=== PATIENT | male | born 1950 | race Caucasian/White ===

== ENCOUNTER → 2016-11-07 | Outpatient (CLI) | payer OTHER ==
--- NOTE | 2016-11-07 15:26 | XR ---
EXAMINATION TYPE: XR chest 2V DATE OF EXAM: 11/07/2016 3:09 PM COMPARISON: NONE HISTORY: Shortness of breath and cough TECHNIQUE: Frontal and lateral views of the chest are obtained. FINDINGS: There is no focal air space opacity, pleural effusion, or pneumothorax seen. The cardiac silhouette size is within normal limits. The osseous structures are intact. IMPRESSION: No acute cardiopulmonary process.
== END | disposition home or self-care (01) ==
LOC: RADXRMAIN 14:58
PROVIDERS: ATTEND Internal Medicine
DX: R06.02 Shortness of breath (principal)
CPT/HCPCS: 71020

== ENCOUNTER 2016-12-10 18:24 | Emergency (ER) | payer BC, OTHER ==
[2016-12-10 19:29] VITALS: BP 148/68; PULSE 67; RESP 18; TEMP 98.2
--- NOTE | 2016-12-10 19:48 | ED ---
Lower Extremity Injury HPI - General Chief Complaint: Extremity Injury, Lower Stated Complaint: left knee pain, injury from september Time Seen by Provider: 12/10/16 19:40 Source: patient, RN notes reviewed Mode of arrival: ambulatory Limitations: no limitations - History of Present Illness Initial Comments: 66-year-old male presents to the emergency Department chief complaint of left knee pain. Patient states that about 3 months ago he slipped and fell. Patient states every once in a while his left knee will bother him. Patient states today the pain seemed to flareup and he felt some tightening up of the knee and turning like pain when he walks. Patient states when he did fall he did Kevin. Patient states that he has not had an x-ray or any imaging since his fall. Patient denies any history of problems with the knee in the past. Patient states it is mild worse to walking or certain movement.Patient denies any recent fever, chills, shortness of breath, chest pain, back pain, abdominal pain, nausea vomiting, numbness or tingling, dysuria or hematuria, constipation or diarrhea, headaches or visual changes, or any other current symptoms. - Related Data Home Medications Medication Instructions Recorded Confirmed Ibuprofen [Motrin] 800 mg PO 12/10/16 Allergies Allergy/AdvReac Type Severity Reaction Status Date / Time No Known Allergies Allergy Verified 07/14/14 18:01 Review of Systems ROS Statement: Those systems with pertinent positive or pertinent negative responses have been documented in the HPI. ROS Other: All systems not noted in ROS Statement are negative. Past Medical History Past Medical History: No Reported History History of Any Multi-Drug Resistant Organisms: None Reported Past Surgical History: Orthopedic Surgery Additional Past Surgical History / Comment(s): traumatic arm surg with amputation Past Psychological History: No Psychological Hx Reported Smoking Status: Former smoker Past Alcohol Use History: None Reported Past Drug Use History: None Reported General Exam Limitations: no limitations General appearance: alert, in no apparent distress Head exam: Present: atraumatic, normocephalic, normal inspection Neck exam: Present: normal inspection. Absent: tenderness, meningismus, lymphadenopathy Respiratory exam: Present: normal lung sounds bilaterally. Absent: respiratory distress, wheezes, rales, rhonchi, stridor Cardiovascular Exam: Present: regular rate, normal rhythm, normal heart sounds. Absent: systolic murmur, diastolic murmur, rubs, gallop, clicks Left Hip exam: Present: normal inspection, full ROM. Absent: tenderness, swelling Upper Leg exam: Present: normal inspection, full ROM. Absent: tenderness, swelling Knee exam: Present: normal inspection, full ROM. Absent: tenderness, swelling, pain w/ pronation/supination, posterior draw sign, pain/laxity with valgus, pain /laxity with varus Lower Leg exam: Present: normal inspection, full ROM. Absent: tenderness, swelling Ankle exam: Present: normal inspection, full ROM. Absent: tenderness, swelling Gait: observed and limited by pain Neurological exam: Present: alert, oriented X3, CN II-XII intact Psychiatric exam: Present: normal affect, normal mood Skin exam: Present: warm, dry, intact, normal color. Absent: rash Course Vital Signs 12/10/16 19:25 Temperature 98.2 F Pulse Rate 67 Respiratory 18 Rate Blood Pressure 148/68 O2 Sat by Pulse 98 Oximetry Medical Decision Making - Medical Decision Making 60 history male presents with left knee pain. This time patient underwent an x- ray that a pressure acute processes. This time we discussed patient is most likely suffering from a left knee sprain. We discussed continuing to use the supportive wrap that he has at home. We discussed follow-up with orthopedic return parameters. Patient stated that he understood and all questions have been answered. He will be discharged. Disposition Clinical Impression: Left knee sprain Disposition: HOME SELF-CARE Condition: Stable Instructions: Knee Sprain (ED) Additional Instructions: Please use medication as discussed. Please follow up with family doctor if symptoms have not improved over the next two days. Please return to the emergency room if your symptoms increase or worsen or for any other concerns. Referrals: Karl Maria MD [Primary Care Provider] - 1-2 days Reyes Ortega MD [STAFF PHYSICIAN] - 1-2 days Time of Disposition: 20:01
--- NOTE | 2016-12-10 20:00 | XR ---
EXAMINATION TYPE: XR knee complete LT DATE OF EXAM: 12/10/2016 7:52 PM COMPARISON: NONE HISTORY: Knee pain TECHNIQUE: 3 views FINDINGS: I see no fracture nor dislocation. Joint spaces are normal. There are no pathologic calcifi cations. There is no sign of joint effusion. IMPRESSION: Negative left knee.
== END 2016-12-10 20:35 | disposition home or self-care (01) ==
LOC: EC 18:24
DX: S83.92XA Sprain of unspecified site of left knee, initial encounter (principal); Z87.891 Personal history of nicotine dependence; Z79.1 Long term (current) use of non-steroidal anti-inflammatories (NSAID); W01.0XXA Fall on same level from slipping, tripping and stumbling without subsequent striking against object, initial encounter; Y92.009 Unspecified place in unspecified non-institutional (private) residence as the place of occurrence of the external cause
CPT/HCPCS: 99283

== ENCOUNTER → 2017-03-07 | Outpatient (CLI) | payer BC | END | disposition home or self-care (01) | LOC: LABWHC1 16:17 | PROVIDERS: ATTEND Orthopaedic Surgery | DX: Z01.810 Encounter for preprocedural cardiovascular examination (principal); S83.242A Other tear of medial meniscus, current injury, left knee, initial encounter; Z01.812 Encounter for preprocedural laboratory examination | CPT/HCPCS: 36415; 93005 ==

== ENCOUNTER 2019-04-24 08:48 | Day surgery (SDC) | payer BC, OTHER ==
[2019-04-20 15:14] VITALS: BMI 34.4
[~2019-04-24 08:48] MED LIST: LACTATED RINGERS 1,000 ML IV SCH
[2019-04-24] MEDS ORDERED: MIDAZOLAM 2 MG/2 ML VIAL ONE (08:51)
[2019-04-24] MEDS ORDERED: PROPOFOL 10 MG/ML 20 ML VIAL IV ONE (08:51)
[2019-04-24] MEDS ORDERED: fentaNYL (PF) 50 MCG/ML 2 ML AMP ONE (08:51)
[2019-04-24 09:12] VITALS: TEMP 97.2
[2019-04-24] MEDS ORDERED: LIDOCAINE 1% 20 ML VIAL (10MG/ML) FOR IV START INTRADERMA ONE (09:16)
--- NOTE | 2019-04-24 10:18 | P.PCN ---
Date of Procedure: 04/24/19 Procedure(s) Performed: Brief history: Patient is a pleasant 68-year-old white male, scheduled for an elective upper endoscopy as well as colonoscopy as a part of evaluation of GERD/chronic hoarseness and prior history of colon polyps. Last colonoscopy was 8 years ago. Procedure performed: Esophagogastroduodenoscopy with biopsy Colonoscopy with snare polypectomy Preoperative diagnosis: GERD History of colon polyps Anesthesia: MAC Procedure: After informed consent was obtained from the patient was brought into the endoscopy unit and IV sedation was administered by anesthesia under continuous monitoring. Initially upper endoscopy was done. The Olympus GF 160 video endoscope was inserted inserted into the mouth and esophagus intubated without any difficulty and was gradually advanced into the stomach and duodenum and carefully examined. The bulb and second part of the duodenum appeared normal. The scope was then withdrawn into the stomach adequately insufflated with air and upon careful examination the antrum had mild gastritis and biopsies were done from this area. The body, cardia and fundus appeared normal. The scope was then withdrawn into the esophagus. The GE junction was located at 40 cm to the incisors. It appeared regular with no erwere 2 small superficial erosions consistent with LA grade a reflux esophagitis. Rest of the esophagus appeared normal. Patient tolerated the procedure well. At this time the patient continued to remain sedation. Initial digital rectal examination was normal. Olympus CF 160 video colonoscope was then inserted into the rectum and gradually advanced to the cecum without any difficulty. Careful examination was performed as the scope was gradually being withdrawn. The prep was excellent. The cecum, ascending colon appeared normal. In the hepatic flexure there was a 2 cm broad-based polyp that was removed by piecemeal snare polypectomy and complete polypectomy accomplished. In the descending colon there was a 1 cm polyp removed by snare polypectomy. Rest of the, transverse colon, descending colon, sigmoid colon and rectum appeared normal. Retroflexion was performed in the rectum and no lesions were noted. Patient tolerated the procedure well. Impression: 1. Upper endoscopy revealed LA grade a reflux esophagitis and mild antral gastritis 2. Colonoscopy revealed 2 cm broad-based hepatic flexure polyp and 1 cm descending colon polyp status post snare polypectomy. Recommendations: Findings of this examination were discussed with the patient as well as his family. He was advised to follow with the biopsy results. If the biopsy shows an adenoma he can have a repeat colonoscopy in 3 years
[2019-04-24] MEDS ORDERED: IV FLUID CONTINUATION 300 ML IV ONE (10:21)
[2019-04-24 10:43] VITALS: BP 128/74; PULSE 59; RESP 18
== END 2019-04-24 10:58 | disposition home or self-care (01) ==
LOC: ORWHC2ENDO 08:48
PROVIDERS: ATTEND Internal Medicine Gastroenterology
DX: K21.0 Gastro-esophageal reflux disease with esophagitis (principal); Z12.11 Encounter for screening for malignant neoplasm of colon; Z86.010 Personal history of colon polyps; D12.3 Benign neoplasm of transverse colon; D12.4 Benign neoplasm of descending colon; K29.50 Unspecified chronic gastritis without bleeding
CPT/HCPCS: 88305; 45385; 43239; J2250; J3010; J2704

== ENCOUNTER 2020-08-23 11:55 | Inpatient (IN) | payer OTHER, MEDICARE ==
--- NOTE | 2020-08-23 12:18 | ED ---
Abdominal Pain HPI - General Chief Complaint: Abdominal Pain Stated Complaint: Black Stool Time Seen by Provider: 08/23/20 12:00 Source: patient Mode of arrival: ambulatory Limitations: no limitations - History of Present Illness Initial Comments: Patient is a 69 year old male with no reported history of present emergency department with reported black stools. Patient states he started having black stools last night and it persisted into this morning. States he had a large bowel movement before coming into the emergency department. No history of previous GI bleeds. Denies taking iron or Pepto-Bismol. Patient is not on any blood thinners. Denies any shortness of breath or lightheadedness. Admits to mild abdominal cramping. No history of peptic ulcer disease. Denies any hematemesis or vomiting. No other alleviating, precipitating or modifying factors - Related Data Home Medications Medication Instructions Recorded Confirmed Ascorbic Acid [Vitamin C] 500 mg PO DAILY 08/23/20 08/23/20 Cyanocobalamin (Vitamin B-12) 1,000 mcg PO DAILY 08/23/20 08/23/20 [Vitamin B-12] Multivitamins, Thera [Multivitamin 1 tab PO DAILY 08/23/20 08/23/20 (formulary)] Turmeric Root Extract [Turmeric] 500 mg PO DAILY 08/23/20 08/23/20 Previous Rx's Medication Instructions Recorded Pantoprazole [Protonix] 40 mg PO AC-BID #60 tablet. 08/26/20 Allergies Allergy/AdvReac Type Severity Reaction Status Date / Time No Known Allergies Allergy Verified 08/23/20 13:36 Review of Systems ROS Statement: Those systems with pertinent positive or pertinent negative responses have been documented in the HPI. ROS Other: All systems not noted in ROS Statement are negative. Past Medical History Past Medical History: No Reported History History of Any Multi-Drug Resistant Organisms: None Reported Past Surgical History: Back Surgery, Orthopedic Surgery Additional Past Surgical History / Comment(s): traumatic LTarm/HAND surg with amputation OF RING,MIDDLE AND FORE FINGERS-HAD MECHANICAL DEGLOVING FROM WORK ACCIDENT. COLONOSCOPY. ORIF LT ANKLE-WORK RELATED FX. LT KNEE SCOPE, BILAT CATARACTS REMOVED Past Anesthesia/Blood Transfusion Reactions: No Reported Reaction Past Psychological History: No Psychological Hx Reported Smoking Status: Former smoker Past Alcohol Use History: None Reported Past Drug Use History: None Reported - Past Family History Mother Family Medical History: No Reported History General Exam Limitations: no limitations General appearance: alert, in no apparent distress Head exam: Present: atraumatic, normocephalic, normal inspection Eye exam: Present: normal appearance, PERRL, EOMI. Absent: scleral icterus, conjunctival injection, periorbital swelling ENT exam: Present: normal exam, mucous membranes moist Neck exam: Present: normal inspection. Absent: tenderness, meningismus, lymphadenopathy Respiratory exam: Present: normal lung sounds bilaterally. Absent: respiratory distress, wheezes, rales, rhonchi, stridor Cardiovascular Exam: Present: regular rate, normal rhythm, normal heart sounds. Absent: systolic murmur, diastolic murmur, rubs, gallop, clicks GI/Abdominal exam: Present: soft, normal bowel sounds. Absent: distended, tenderness, guarding, rebound, rigid Rectal exam: Present: heme (+) stool, black stool Extremities exam: Present: normal inspection, full ROM, normal capillary refill. Absent: tenderness, pedal edema, joint swelling, calf tenderness Back exam: Present: normal inspection Neurological exam: Present: alert, oriented X3, CN II-XII intact Psychiatric exam: Present: normal affect, normal mood Skin exam: Present: warm, dry, intact, normal color. Absent: rash Course Vital Signs 08/23/20 08/23/20 08/23/20 11:58 13:08 19:37 Temperature 98.7 F 98.1 F Pulse Rate 86 76 67 Respiratory 18 18 18 Rate Blood Pressure 139/76 121/65 O2 Sat by Pulse 89 L 98 97 Oximetry Medical Decision Making - Medical Decision Making On arrival patient is placed into room 26. A thorough history and physical exam was performed. Rectal exam is performed and does demonstrate a small amount of black stool. No gross blood. Laboratory studies were conducted. Hemoglobin stable at 13. Occult is positive. CT the patient's abdomen and pelvis was performed which demonstrates no acute findings to account for symptoms. Discuss results the patient. Did recommend hospital admission in order to trend the sridhar sarabia's hemoglobin and consult GI for which the patient agreed to. Discussed the case with Dr. Red who agreed to admit the patient. Patient remained in stable condition awaiting a bed - Lab Data Result diagrams: 08/26/20 08:00 08/23/20 12:42 Lab Results 08/23/20 08/23/20 08/23/20 Range/Units 12:42 12:42 12:42 WBC 8.2 (3.8-10.6) k/uL RBC 4.11 L (4.30-5.90) m/uL Hgb 13.0 (13.0-17.5) gm/dL Hct 37.5 L (39.0-53.0) % MCV 91.2 (80.0-100.0) fL MCH 31.7 (25.0-35.0) pg MCHC 34.7 (31.0-37.0) g/dL RDW 12.7 (11.5-15.5) % Plt Count 233 (150-450) k/uL MPV 7.2 Neutrophils % 55 % Lymphocytes % 30 % Monocytes % 6 % Eosinophils % 5 % Basophils % 1 % Neutrophils # 4.5 (1.3-7.7) k/uL Lymphocytes # 2.4 (1.0-4.8) k/uL Monocytes # 0.5 (0-1.0) k/uL Eosinophils # 0.4 (0-0.7) k/uL Basophils # 0.1 (0-0.2) k/uL PT 10.6 (9.0-12.0) sec INR 1.0 (<1.2) APTT 25.2 (22.0-30.0) sec Sodium (137-145) mmol/L Potassium (3.5-5.1) mmol/L Chloride (98-107) mmol/L Carbon Dioxide (22-30) mmol/L Anion Gap mmol/L BUN (9-20) mg/dL Creatinine (0.66-1.25) mg/dL Est GFR (CKD-EPI)AfAm (>60 ml/min/1.73 sqM) Est GFR (CKD-EPI)NonAf (>60 ml/min/1.73 sqM) Glucose (74-99) mg/dL Plasma Lactic Acid Ashwin (0.7-2.0) mmol/L Calcium (8.4-10.2) mg/dL Magnesium (1.6-2.3) mg/dL Iron (65-175) ug/dL TIBC (228-460) ug/dL % Saturation (15.00-50.00) Ferritin (22.0-322.0) ng/mL Total Bilirubin (0.2-1.3) mg/dL AST (17-59) U/L ALT (4-49) U/L Alkaline Phosphatase (38-126) U/L Troponin I (0.000-0.034) ng/mL Total Protein (6.3-8.2) g/dL Albumin (3.5-5.0) g/dL Vitamin B12 (200.0-944.0) pg/mL Folate ng/mL Stool Occult Blood Positive (Negative) Blood Type Blood Type Confirm Blood Type Recheck Bld Type Recheck Status Antibody Screen Spec Expiration Date 08/23/20 08/23/20 08/23/20 Range/Units 12:42 12:42 12:42 WBC (3.8-10.6) k/uL RBC (4.30-5.90) m/uL Hgb (13.0-17.5) gm/dL Hct (39.0-53.0) % MCV (80.0-100.0) fL MCH (25.0-35.0) pg MCHC (31.0-37.0) g/dL RDW (11.5-15.5) % Plt Count (150-450) k/uL MPV Neutrophils % % Lymphocytes % % Monocytes % % Eosinophils % % Basophils % % Neutrophils # (1.3-7.7) k/uL Lymphocytes # (1.0-4.8) k/uL Monocytes # (0-1.0) k/uL Eosinophils # (0-0.7) k/uL Basophils # (0-0.2) k/uL PT (9.0-12.0) sec INR (<1.2) APTT (22.0-30.0) sec Sodium 139 (137-145) mmol/L Potassium 4.1 (3.5-5.1) mmol/L Chloride 107 (98-107) mmol/L Carbon Dioxide 26 (22-30) mmol/L Anion Gap 6 mmol/L BUN 34 H (9-20) mg/dL Creatinine 0.81 (0.66-1.25) mg/dL Est GFR (CKD-EPI)AfAm >90 (>60 ml/min/1.73 sqM) Est GFR (CKD-EPI)NonAf >90 (>60 ml/min/1.73 sqM) Glucose 95 (74-99) mg/dL Plasma Lactic Acid Ashwin 1.0 (0.7-2.0) mmol/L Calcium 9.3 (8.4-10.2) mg/dL Magnesium 1.7 (1.6-2.3) mg/dL Iron (65-175) ug/dL TIBC (228-460) ug/dL % Saturation (15.00-50.00) Ferritin (22.0-322.0) ng/mL Total Bilirubin 0.6 (0.2-1.3) mg/dL AST 26 (17-59) U/L ALT 26 (4-49) U/L Alkaline Phosphatase 72 (38-126) U/L Troponin I <0.012 (0.000-0.034) ng/mL Total Protein 7.1 (6.3-8.2) g/dL Albumin 4.0 (3.5-5.0) g/dL Vitamin B12 (200.0-944.0) pg/mL Folate ng/mL Stool Occult Blood (Negative) Blood Type Blood Type Confirm Blood Type Recheck Bld Type Recheck Status Antibody Screen Spec Expiration Date 08/23/20 08/23/20 08/23/20 Range/Units 12:42 12:42 13:25 WBC (3.8-10.6) k/uL RBC (4.30-5.90) m/uL Hgb (13.0-17.5) gm/dL Hct (39.0-53.0) % MCV (80.0-100.0) fL MCH (25.0-35.0) pg MCHC (31.0-37.0) g/dL RDW (11.5-15.5) % Plt Count (150-450) k/uL MPV Neutrophils % % Lymphocytes % % Monocytes % % Eosinophils % % Basophils % % Neutrophils # (1.3-7.7) k/uL Lymphocytes # (1.0-4.8) k/uL Monocytes # (0-1.0) k/uL Eosinophils # (0-0.7) k/uL Basophils # (0-0.2) k/uL PT (9.0-12.0) sec INR (<1.2) APTT (22.0-30.0) sec Sodium (137-145) mmol/L Potassium (3.5-5.1) mmol/L Chloride (98-107) mmol/L Carbon Dioxide (22-30) mmol/L Anion Gap mmol/L BUN (9-20) mg/dL Creatinine (0.66-1.25) mg/dL Est GFR (CKD-EPI)AfAm (>60 ml/min/1.73 sqM) Est GFR (CKD-EPI)NonAf (>60 ml/min/1.73 sqM) Glucose (74-99) mg/dL Plasma Lactic Acid Ashwin (0.7-2.0) mmol/L Calcium (8.4-10.2) mg/dL Magnesium (1.6-2.3) mg/dL Iron 161 (65-175) ug/dL TIBC 350 (228-460) ug/dL % Saturation 46.00 (15.00-50.00) Ferritin 91.1 (22.0-322.0) ng/mL Total Bilirubin (0.2-1.3) mg/dL AST (17-59) U/L ALT (4-49) U/L Alkaline Phosphatase (38-126) U/L Troponin I (0.000-0.034) ng/mL Total Protein (6.3-8.2) g/dL Albumin (3.5-5.0) g/dL Vitamin B12 451.0 (200.0-944.0) pg/mL Folate >24.0 ng/mL Stool Occult Blood (Negative) Blood Type O Positive Blood Type Confirm O Positive Blood Type Recheck No Previous Record Bld Type Recheck Status CABO Indicated Antibody Screen NEGATIVE Spec Expiration Date 08/26/2020 - 234108/23/20 08/24/20 08/25/20 Range/Units 18:37 07:23 07:41 WBC 8.8 6.6 6.3 (3.8-10.6) k/uL RBC 3.84 L 3.69 L 3.63 L (4.30-5.90) m/uL Hgb 12.4 L 11.6 L 11.3 L (13.0-17.5) gm/dL Hct 35.4 L 33.9 L 33.0 L (39.0-53.0) % MCV 92.1 91.8 90.8 (80.0-100.0) fL MCH 32.2 31.5 31.1 (25.0-35.0) pg MCHC 34.9 34.4 34.3 (31.0-37.0) g/dL RDW 12.7 12.7 12.7 (11.5-15.5) % Plt Count 224 208 204 (150-450) k/uL MPV 6.9 7.2 7.2 Neutrophils % 50 51 % Lymphocytes % 32 31 % Monocytes % 5 5 % Eosinophils % 9 10 % Basophils % 1 1 % Neutrophils # 3.3 3.2 (1.3-7.7) k/uL Lymphocytes # 2.1 1.9 (1.0-4.8) k/uL Monocytes # 0.3 0.3 (0-1.0) k/uL Eosinophils # 0.6 0.6 (0-0.7) k/uL Basophils # 0.1 0.1 (0-0.2) k/uL PT (9.0-12.0) sec INR (<1.2) APTT (22.0-30.0) sec Sodium (137-145) mmol/L Potassium (3.5-5.1) mmol/L Chloride (98-107) mmol/L Carbon Dioxide (22-30) mmol/L Anion Gap mmol/L BUN (9-20) mg/dL Creatinine (0.66-1.25) mg/dL Est GFR (CKD-EPI)AfAm (>60 ml/min/1.73 sqM) Est GFR (CKD-EPI)NonAf (>60 ml/min/1.73 sqM) Glucose (74-99) mg/dL Plasma Lactic Acid Ashwin (0.7-2.0) mmol/L Calcium (8.4-10.2) mg/dL Magnesium (1.6-2.3) mg/dL Iron (65-175) ug/dL TIBC (228-460) ug/dL % Saturation (15.00-50.00) Ferritin (22.0-322.0) ng/mL Total Bilirubin (0.2-1.3) mg/dL AST (17-59) U/L ALT (4-49) U/L Alkaline Phosphatase (38-126) U/L Troponin I (0.000-0.034) ng/mL Total Protein (6.3-8.2) g/dL Albumin (3.5-5.0) g/dL Vitamin B12 (200.0-944.0) pg/mL Folate ng/mL Stool Occult Blood (Negative) Blood Type Blood Type Confirm Blood Type Recheck Bld Type Recheck Status Antibody Screen Spec Expiration Date - EKG Data EKG Comments: EKG demonstrates normal sinus rhythm with a ventricular rate of 87. AR interval 134. QRS 88. QTC 411. Q wave in lead 3. No acute ST segment elevation Disposition Clinical Impression: Melena, GI bleed Disposition: ADMITTED IP TO THIS HOSP Condition: Stable Is patient prescribed a controlled substance at d/c from ED?: No Decision to Admit Reason: Admit from EC Decision Date: 08/23/20 Decision Time: 14:58
[2020-08-23 13:00] LABS: Basophils # (A) 0.1 k/uL (0-0.2); Basophils % (A) 1 %; Eosinophils # (A) 0.4 k/uL (0-0.7); Eosinophils % (A) 5 %; HCT 37.5 % (39.0-53.0); Lymphocytes # (A) 2.4 k/uL (1.0-4.8); Lymphocytes % (A) 30 %; MCH 31.7 pg (25.0-35.0); MCHC 34.7 g/dL (31.0-37.0); MCV 91.2 fL (80.0-100.0); Mean Platelet Volume 7.2; Monocytes # (A) 0.5 k/uL (0-1.0); Monocytes % (A) 6 %; Neutrophils # (A) 4.5 k/uL (1.3-7.7); Neutrophils % (A) 55 %; Platelet Count 233 k/uL (150-450); RBC 4.11 m/uL (4.30-5.90); RDW 12.7 % (11.5-15.5); WBC 8.2 k/uL (3.8-10.6)
[2020-08-23 13:11] LABS: Partial Thromboplastin Time 25.2 sec (22.0-30.0); Prothrombin Time 10.6 sec (9.0-12.0)
[2020-08-23 13:15] LABS: ALT 26 U/L (4-49); AST 26 U/L (17-59); African American GFR (CKD) >90 (>60 ml/min/1.73 sqM); Alkaline Phosphatase 72 U/L (38-126); Anion Gap 6 mmol/L; Blood Urea Nitrogen 34 mg/dL (9-20); Calcium 9.3 mg/dL (8.4-10.2); Carbon Dioxide 26 mmol/L (22-30); Chloride 107 mmol/L (98-107); Glucose 95 mg/dL (74-99); Magnesium 1.7 mg/dL (1.6-2.3); Non-African American GFR(CKD) >90 (>60 ml/min/1.73 sqM); Potassium 4.1 mmol/L (3.5-5.1); Sodium 139 mmol/L (137-145); Total Bilirubin 0.6 mg/dL (0.2-1.3); Total Protein 7.1 g/dL (6.3-8.2)
--- NOTE | 2020-08-23 14:23 | CT ---
EXAMINATION TYPE: CT abdomen pelvis w con DATE OF EXAM: 08/23/2020 COMPARISON: None HISTORY: black stool and pain CT DLP: 2046.7 mGycm Automated exposure control for dose reduction was used. TECHNIQUE: Helical acquisition of images from the lung bases through the pelvis have been completed. CONTRAST: Performed without Oral Contrast and with IV Contrast, patient injected with 100 mL of Isovue 300. FINDINGS: LUNG BASES: Some probable subsegmental atelectatic changes or scarring present at the lung bases. AORTA: No significant abnormality is appreciated. LIVER/GB: Low dense foci scattered within the liver may represent cysts, the largest in the left lobe measures 4.1 x 4.1 cm. Gallbladder is unremarkable. PANCREAS: No significant abnormality is seen. SPLEEN: No significant abnormality is seen. ADRENALS: No significant abnormality is seen. KIDNEYS: Probable exophytic cortical cyst at the lower pole of the right kidney show some wall calcif ication and measures 2 cm in greatest dimension, subcentimeter cyst noted within the left kidney, no hydronephrosis or hydroureter bilaterally.. REPRODUCTIVE ORGANS: Prostate is prominent and shows associated calcification BOWEL: No significant abnormality is seen. FREE AIR: No Free Air visible. ASCITES: None visible. PELVIC ADENOPATHY: None visualized. RETROPERITONEAL ADENOPATHY: No Retroperitoneal Adenopathy visible. URINARY BLADDER: Concentric wall thickening likely due to chronic bladder outlet obstruction OSSEOUS STRUCTURES: Degenerative disc changes, facet arthropathy noted in the visualized spine. IMPRESSION: NO ABNORMALITY EVIDENT TO ACCOUNT FOR PATIENT'S SYMPTOMS.
[2020-08-23] MEDS ORDERED: NALOXONE 0.4 MG/ML 1 ML VIAL IV PRN (14:59)
[2020-08-23] MEDS: SODIUM CHLORIDE 0.9% 1,000 ML IV SCH (15:16)
[2020-08-23] MEDS ORDERED: PANTOPRAZOLE 40 MG/10 ML VIAL IVP STA (15:41)
--- NOTE | 2020-08-23 17:19 | P.HPIM ---
History of Present Illness This is a pleasant 69 years old male with no significant past medical history. He has remote past medical history of back surgery on vitamins only at home. Presents because of dark stool. Patient states that yesterday he had Dr. Ragland colored stool which is unusual for him and today it was black in color however there is no fresh blood reported. He denies specific abdominal pain but he said he felt some gaseous and his upcom ing last night which felt like pressure. No nausea vomiting. He denies smoking, alcohol or illicit drug He had some dyspnea for the last 3-4 weeks and he was referred to craps manager Dr. Caballero and is supposed to get echocardiogram done today. Also he has history of cough and yellow phlegm for the last 2 weeks. However he denies chest pain. Once he has been referred to Dr. Caballero and he started practicing walking 2 miles 3 times a day. Patient had EGD done 1 year ago showing LA grade a reflux esophagitis with mild antral gastritis and colonoscopy revealed 2 cm broad-based hepatic flexure polyp and 1 cm descending colon polyp status post polypectomy On admission Vitas looks stable. He is currently saturating 98% on room air, no respiratory distress. Labs including CBC is unremarkable, hemoglobin is normal at 13.0 K. INR is 1.0, BMP and liver enzymes were unremarkable, he has positive occult blood in his stool. CT of the abdomen and pelvis with contrast: No abnormality account for the patient's symptoms per radiologist, probable exophytic cortical cyst at the lower pole of the right kidney shows some wall calcification and measures 2 cm in greater dimension. Subcentimeter cyst noted within the left kidney. No hydronephrosis Review of Systems CONSTITUTIONAL: No fever, no malaise, no fatigue. HEENT: No recent visual problems or hearing problems. Denied any sore throat. CARDIOVASCULAR: No orthopnea, PND, no palpitations, no syncope. PULMONARY: No shortness of breath, no cough, no hemoptysis. GASTROINTESTINAL: No diarrhea, no nausea, no vomiting, no abdominal pain. Normoactive bowel sounds. NEUROLOGICAL: No headaches, no weakness, no numbness. HEMATOLOGICAL: Denies any bleeding or petechiae. GENITOURINARY: Denies any burning micturition, frequency, or urgency. MUSCULOSKELETAL/RHEUMATOLOGICAL: Denies any joint pain, swelling, or any muscle pain. ENDOCRINE: Denies any polyuria or polydipsia. Past Medical History Past Medical History: No Reported History History of Any Multi-Drug Resistant Organisms: None Reported Past Surgical History: Back Surgery, Orthopedic Surgery Additional Past Surgical History / Comment(s): traumatic LTarm/HAND surg with amputation OF RING,MIDDLE AND FORE FINGERS-HAD MECHANICAL DEGLOVING FROM WORK ACCIDENT. COLONOSCOPY. ORIF LT ANKLE-WORK RELATED FX. LT KNEE SCOPE, BILAT CATARACTS REMOVED Past Anesthesia/Blood Transfusion Reactions: No Reported Reaction Past Psychological History: No Psychological Hx Reported Smoking Status: Former smoker Past Alcohol Use History: None Reported Past Drug Use History: None Reported - Past Family History Mother Family Medical History: No Reported History Medications and Allergies Home Medications Medication Instructions Recorded Confirmed Type Ascorbic Acid [Vitamin C] 500 mg PO DAILY 08/23/20 08/23/20 History Cyanocobalamin (Vitamin B-12) 1,000 mcg PO DAILY 08/23/20 08/23/20 History [Vitamin B-12] Multivitamins, Thera [Multivitamin 1 tab PO DAILY 08/23/20 08/23/20 History (formulary)] Turmeric Root Extract [Turmeric] 500 mg PO DAILY 08/23/20 08/23/20 History Allergies Allergy/AdvReac Type Severity Reaction Status Date / Time No Known Allergies Allergy Verified 08/23/20 13:36 Physical Exam Vitals: Vital Signs Temp Pulse Resp BP Pulse Ox 08/23/20 13:08 76 18 98 08/23/20 11:58 98.7 F 86 18 139/76 89 L Intake and Output 08/23/20 08/23/20 08/23/20 06:59 14:59 22:59 Other: Weight 112.037 kg GENERAL: The patient is alert and oriented x3, not in any acute distress. Well developed, well nourished. HEENT: Pupils are round and equally reacting to light. EOMI. No scleral icterus. No conjunctival pallor. Normocephalic, atraumatic. No pharyngeal erythema. No thyromegaly. CARDIOVASCULAR: S1 and S2 present. No murmurs, rubs, or gallops. PULMONARY: Chest is clear to auscultation, no wheezing or crackles. ABDOMEN: Soft, nontender, nondistended, normoactive bowel sounds. No palpable organomegaly. MUSCULOSKELETAL: No joint swelling or deformity. EXTREMITIES: No cyanosis, clubbing, or pedal edema. NEUROLOGICAL: Gross neurological examination did not reveal any focal deficits. SKIN: No rashes. No petechiae Results CBC & Chem 7: 08/23/20 12:42 08/23/20 12:42 Labs: Abnormal Lab Results - Last 24 Hours (Table) 08/23/20 08/23/20 Range/Units 12:42 12:42 RBC 4.11 L (4.30-5.90) m/uL Hct 37.5 L (39.0-53.0) % BUN 34 H (9-20) mg/dL Assessment and Plan Assessment: -Positive occult blood in stool, no suspicion off of her GI bleed with normal hemoglobin and vitals, follow-up recommendation by GI. We will do anemia workup -Right kidney cyst, could be followed as an outpatient DVT prophylaxis: No heparin. A few POSSIBLE blood in stool GI prophylaxis PPI
[2020-08-23 18:54] LABS: HCT 35.4 % (39.0-53.0); HGB 12.4 gm/dL (13.0-17.5); MCH 32.2 pg (25.0-35.0); MCHC 34.9 g/dL (31.0-37.0); MCV 92.1 fL (80.0-100.0); Mean Platelet Volume 6.9; Platelet Count 224 k/uL (150-450); RBC 3.84 m/uL (4.30-5.90); RDW 12.7 % (11.5-15.5); WBC 8.8 k/uL (3.8-10.6)
[2020-08-24 04:41] LABS: Iron 161 ug/dL (65-175); Total Iron Binding Capacity 350 ug/dL (228-460)
[2020-08-24 04:50] LABS: Ferritin 91.1 ng/mL (22.0-322.0)
[2020-08-24 04:58] LABS: Folate, Serum >24.0 ng/mL
[2020-08-24] MEDS: PANTOPRAZOLE 40 MG TABLET PO SCH (06:58)
[2020-08-24 07:43] LABS: Basophils # (A) 0.1 k/uL (0-0.2); Basophils % (A) 1 %; Eosinophils # (A) 0.6 k/uL (0-0.7); Eosinophils % (A) 9 %; HCT 33.9 % (39.0-53.0); HGB 11.6 gm/dL (13.0-17.5); Lymphocytes # (A) 2.1 k/uL (1.0-4.8); Lymphocytes % (A) 32 %; MCH 31.5 pg (25.0-35.0); MCHC 34.4 g/dL (31.0-37.0); MCV 91.8 fL (80.0-100.0); Mean Platelet Volume 7.2; Monocytes # (A) 0.3 k/uL (0-1.0); Monocytes % (A) 5 %; Neutrophils # (A) 3.3 k/uL (1.3-7.7); Neutrophils % (A) 50 %; Platelet Count 208 k/uL (150-450); RBC 3.69 m/uL (4.30-5.90); RDW 12.7 % (11.5-15.5); WBC 6.6 k/uL (3.8-10.6)
--- NOTE | 2020-08-24 11:32 | P.PN ---
Subjective This is a pleasant 69 years old male with no significant past medical history. He has remote past medical history of back surgery on vitamins only at home. Presents because of dark stool. Patient states that yesterday he had Dr. Ragland colored stool which is unusual for him and today it was black in color however there is no fresh blood reported. He denies specific abdominal pain but he said he felt some gaseous and his upcoming last night which felt like pressure. No nausea vomiting. He denies smoking, alcohol or illicit drug He had some dyspnea for the last 3-4 weeks and he was referred to track inspector Dr. Caballero and is supposed to get echocardiogram done today. Also he has history of cough and yellow phlegm for the last 2 weeks. However he denies chest pain. Once he has been referred to Dr. Caballero and he started practicing walking 2 miles 3 times a day. Patient had EGD done 1 year ago showing LA grade a reflux esophagitis with mild antral gastritis and colonoscopy revealed 2 cm broad-based hepatic flexure polyp and 1 cm descending colon polyp status post polypectomy On admission Vitas looks stable. He is currently saturating 98% on room air, no respiratory distress. Labs including CBC is unremarkable, hemoglobin is normal at 13.0 K. INR is 1.0, BMP and liver enzymes were unremarkable, he has positive occult blood in his stool. CT of the abdomen and pelvis with contrast: No abnormality account for the patient's symptoms per radiologist, probable exophytic cortical cyst at the lower pole of the right kidney shows some wall calcification and measures 2 cm in greater dimension. Subcentimeter cyst noted within the left kidney. No hydronephrosis 08/24/2020 No abdominal pain or other complaint Hemoglobin is slightly low at 11.6, but also his elements of hemodilution. Iron studies are normal, B12 is 451, folate is more than 24 Continue with PPI GI team upon for EGD tomorrow Check echocardiogram Objective - Vital Signs Vital signs: Vital Signs Temp 97.6 F 08/24/20 04:12 Pulse 75 08/24/20 08:54 Resp 16 08/24/20 08:54 BP 114/73 08/24/20 08:54 Pulse Ox 94 L 08/24/20 08:54 Intake & Output 08/23/20 08/24/20 08/24/20 18:59 06:59 18:59 Weight 112.037 kg 112.037 kg Other: Voiding Method Toilet Toilet # Voids 1 - Exam GENERAL: The patient is alert and oriented x3, not in any acute distress. Well developed, well nourished. HEENT: Pupils are round and equally reacting to light. EOMI. No scleral icterus. No conjunctival pallor. Normocephalic, atraumatic. No pharyngeal erythema. No thyromegaly. CARDIOVASCULAR: S1 and S2 present. No murmurs, rubs, or gallops. PULMONARY: Chest is clear to auscultation, no wheezing or crackles. ABDOMEN: Soft, nontender, nondistended, normoactive bowel sounds. No palpable organomegaly. MUSCULOSKELETAL: No joint swelling or deformity. EXTREMITIES: No cyanosis, clubbing, or pedal edema. NEUROLOGICAL: Gross neurological examination did not reveal any focal deficits. SKIN: No rashes. No petechiae - Labs CBC & Chem 7: 08/24/20 07:23 08/23/20 12:42 Labs: Abnormal Lab Results - Last 24 Hours (Table) 08/23/20 08/23/20 08/23/20 Range/Units 12:42 12:42 18:37 RBC 4.11 L 3.84 L (4.30-5.90) m/uL Hgb 12.4 L (13.0-17.5) gm/dL Hct 37.5 L 35.4 L (39.0-53.0) % BUN 34 H (9-20) mg/dL 08/24/20 Range/Units 07:23 RBC 3.69 L (4.30-5.90) m/uL Hgb 11.6 L (13.0-17.5) gm/dL Hct 33.9 L (39.0-53.0) % BUN (9-20) mg/dL Assessment and Plan Assessment: -Positive occult blood in stool, no suspicion off of her GI bleed with normal hemoglobin and vitals, follow-up recommendation by GI. We will do anemia workup -Right kidney cyst, could be followed as an outpatient -History of exertional dyspnea, check echocardiogram DVT prophylaxis: No heparin. A few POSSIBLE blood in stool GI prophylaxis PPI
[2020-08-24] MEDS: SODIUM CHLORIDE 0.9% 1,000 ML IV SCH (20:40)
--- NOTE | 2020-08-24 21:26 | P.CONS ---
History of Present Illness - Reason for Consult Consult date: 08/24/20 GI bleed Requesting physician: Johnny E Sheet - Chief Complaint Dark stool - History of Present Illness 69-year-old male with a prior medical history significant for back surgery who presented to the hospital for evaluation of dark-colored stools. The patient reports 2-3 days of formed dark stool. He denies any NSAID use, Pepto-Bismol use, or iron therapy at home. The patient is not on any anticoagulation. Diffusely he has undergone endoscopic evaluation with EGD and colonoscopy in 04/2019 significant for LA grade a esophagitis, mild gastritis, as well as polypectomy on colonoscopy. He denies any abdominal pain at this time. He denies any nausea, vomiting or hematemesis. He does report some shortness of breath in association with his symptoms. Last dark colored bowel movement was earlier in the day. Laboratory evaluation on presentation was significant for WBC 6.6, hemoglobin 11.6, platelet count 200,000, total bilirubin 0.6, alkaline phosphatase 72, AST 26 and ALTs 26 with stool testing positive for occult blood. Iron studies were not consistent with iron deficiency. Currently the patient is seen resting in bed where his been started on Protonix therapy. Computed tomography scan of the abdomen negative for any acute intra-abdominal pathology to explain symptoms, cysts on his kidneys were noted. Review of Systems REVIEW OF SYSTEMS: CONSTITUTIONAL: Denies any fevers, chills, weight change or fatigue. CARDIOVASCULAR: Denies any chest pain, palpitations high or low blood pressures RESPIRATORY: Denies any shortness of breath, hemoptysis or cough, but he did have some shortness of breath prior to presentation. GENITOURINARY: No dysuria or hematuria. MUSCULOSKELETAL: No weakness reported. SKIN: Denies any new rashes or lesions, jaundice or pallor. PSYCHIATRIC: Denies any depression or anxiety. NEUROLOGY: Denies headache, denies any new focal deficits. EARS/NOSE/THROAT: No recent hearing change, congestion, nasal discharge or sore throat. EYES: No pain in eyes, discharge or change in vision. GASTROINTESTINAL: As per HPI. Past Medical History Past Medical History: No Reported History History of Any Multi-Drug Resistant Organisms: None Reported Past Surgical History: Back Surgery, Orthopedic Surgery Additional Past Surgical History / Comment(s): traumatic LTarm/HAND surg with amputation OF RING,MIDDLE AND FORE FINGERS-HAD MECHANICAL DEGLOVING FROM WORK ACCIDENT. COLONOSCOPY. ORIF LT ANKLE-WORK RELATED FX. LT KNEE SCOPE, BILAT CATARACTS REMOVED Past Anesthesia/Blood Transfusion Reactions: No Reported Reaction Past Psychological History: No Psychological Hx Reported Smoking Status: Former smoker Past Alcohol Use History: None Reported Additional Past Alcohol Use History / Comment(s): QUIT SMOKING 2015 Past Drug Use History: None Reported - Past Family History Mother Family Medical History: No Reported History Medications and Allergies Home Medications Medication Instructions Recorded Confirmed Type Ascorbic Acid [Vitamin C] 500 mg PO DAILY 08/23/20 08/23/20 History Cyanocobalamin (Vitamin B-12) 1,000 mcg PO DAILY 08/23/20 08/23/20 History [Vitamin B-12] Multivitamins, Thera [Multivitamin 1 tab PO DAILY 08/23/20 08/23/20 History (formulary)] Turmeric Root Extract [Turmeric] 500 mg PO DAILY 08/23/20 08/23/20 History Allergies Allergy/AdvReac Type Severity Reaction Status Date / Time No Known Allergies Allergy Verified 08/23/20 13:36 Physical Exam Vitals: Vital Signs Temp Pulse Resp BP Pulse Ox 08/24/20 15:29 98.0 F 87 120/70 94 L 08/24/20 08:54 75 16 114/73 94 L 08/24/20 04:12 97.6 F 70 17 114/62 93 L 08/23/20 23:48 98.1 F 72 18 115/71 97 Intake and Output 08/24/20 08/24/20 08/24/20 06:59 14:59 22:59 Other: Voiding Method Toilet Toilet # Voids 1 1 Weight 112.037 kg On physical examination, patient appears comfortable in no apparent distress. HEAD: Normocephalic, atraumatic. EYES: No scleral icterus. No conjunctival injection. MOUTH: No lesions, tongue midline. NECK: Trachea midline, no gross abnormalities. CHEST: Clear to auscultation with no wheezing or rhonchi appreciated. HEART: Regular rate and rhythm. ABDOMEN: Soft, obese. Bowel sounds are positive. No organomegaly. No guarding or rigidity. EXTREMITIES: No pedal edema. SKIN: No rashes, no jaundice. NEUROLOGIC: Alert and oriented x3. No focal deficits. Results CBC & Chem 7: 08/24/20 07:23 08/23/20 12:42 Labs: Abnormal Lab Results - Last 24 Hours (Table) 08/24/20 Range/Units 07:23 RBC 3.69 L (4.30-5.90) m/uL Hgb 11.6 L (13.0-17.5) gm/dL Hct 33.9 L (39.0-53.0) % CT scan - abdomen: report reviewed (Computed tomography scan of the abdomen negative for any acute intra-abdominal pathology to explain symptoms, cysts on his kidneys were noted.) Assessment and Plan (1) GI bleed Narrative/Plan: 69-year-old male presenting to the hospital with to 3 days of melanotic stool. He denies any NSAID use, home anticoagulation therapy, iron therapy or Pepto- Bismol use. He denies any abdominal pain. No nausea or vomiting. Last endoscopic evaluation was in 2019 and significant for LA grade a esophagitis and mild gastritis on upper endoscopy and polypectomy on colonoscopy. Unclear etiology, may be related to esophagitis, gastritis, peptic ulcer disease, AVM or other etiology. Current Visit: Yes Status: Acute Code(s): K92.2 - GASTROINTESTINAL HEMORRHAGE, UNSPECIFIED SNOMED Code(s): 87126306 (2) Melena Current Visit: Yes Status: Acute Code(s): K92.1 - MELENA SNOMED Code(s): 4244928 Plan: Supportive care Protonix 40 mg twice daily Continue to monitor hemoglobin and hematocrit and transfuse as needed Okay for diet, nothing by mouth after midnight Plan for EGD for further evaluation tomorrow Avoid NSAID use Hold any anticoagulation therapy at this time Thank you for allowing us to participate in the care of the patient we will continue to follow
[2020-08-25] MEDS: PANTOPRAZOLE 40 MG TABLET PO SCH (06:39)
[2020-08-25 08:10] LABS: Basophils # (A) 0.1 k/uL (0-0.2); Basophils % (A) 1 %; Eosinophils # (A) 0.6 k/uL (0-0.7); Eosinophils % (A) 10 %; HGB 11.3 gm/dL (13.0-17.5); Lymphocytes # (A) 1.9 k/uL (1.0-4.8); Lymphocytes % (A) 31 %; MCH 31.1 pg (25.0-35.0); MCHC 34.3 g/dL (31.0-37.0); MCV 90.8 fL (80.0-100.0); Mean Platelet Volume 7.2; Monocytes # (A) 0.3 k/uL (0-1.0); Monocytes % (A) 5 %; Neutrophils # (A) 3.2 k/uL (1.3-7.7); Neutrophils % (A) 51 %; Platelet Count 204 k/uL (150-450); RBC 3.63 m/uL (4.30-5.90); RDW 12.7 % (11.5-15.5); WBC 6.3 k/uL (3.8-10.6)
--- NOTE | 2020-08-25 09:43 | ECHOF ---
Referral Reason:Rule out heart disease MEASUREMENTS -------- HEIGHT: 179.1 cm WEIGHT: 112.0 kg BP: 114/73 RVIDd: 3.0 cm (< 3.3) IVSd: 1.6 cm (0.6 - 1.1) LVIDd: 3.7 cm (3.9 - 5.3) LVPWd: 2.0 cm (0.6 - 1.1) IVSs: 2.3 cm LVIDs: 2.6 cm LVPWs: 2.0 cm LAESV Index (A-L): 21.65 ml/m Ao Diam: 3.8 cm (2.0 - 3.7) AV Cusp: 2.6 cm (1.5 - 2.6) MV EXCURSION: 17.354 mm (> 18.000) MV EF SLOPE: 94 mm/s (70 - 150) EPSS: 0.2 cm MV E Anthony: 0.86 m/s MV DecT: 182 ms MV A Anthony: 1.08 m/s MV E/A Ratio: 0.79 RAP: 5.00 mmHg RVSP: 21.42 mmHg FINDINGS -------- Sinus rhythm. This was a technically difficult study with suboptimal apical views. The left ventricular size is normal. There is moderate concentric left ventricular hypertrophy. O verall left ventricular systolic function is low-normal with, an EF between 50 - 55 %. Questionable distal anterior septal hypokinesis. The right ventricle is normal in size. Normal LA size by volume 22+/-6 ml/m2. The right atrium was not well visualized. xx ml of Lumason was utilized for enhancement of images. Interatrial and interventricular septum intact. There is mild aortic valve sclerosis. There is no evidence of aortic regurgitation. There is no e vidence of aortic stenosis. There is trace mitral regurgitation. Mild tricuspid regurgitation present. There is no evidence of pulmonary hypertension. The right v entricular systolic pressure, as measured by Doppler, is 21.42mmHg. There is no pulmonic regurgitation present. The aortic root size is normal. IVC Not well visulized. There is no pericardial effusion. CONCLUSIONS -------- 1. The left ventricular size is normal. 2. There is moderate concentric left ventricular hypertrophy. 3. Overall left ventricular systolic function is low-normal with, an EF between 50 - 55 %. 4. There is mild aortic valve sclerosis. 5. There is trace mitral regurgitation. 6. Mild tricuspid regurgitation present. SALES OPERATIONS ANALYST: Amaya Ta RDCS
[2020-08-25] MEDS ORDERED: PROPOFOL 10 MG/ML 20 ML VIAL IV ONE (12:41)
[2020-08-25] MEDS ORDERED: LIDOCAINE 1% INJ 10MG/ML (20 ML MDV) ONE (12:41)
[2020-08-25] MEDS ORDERED: EPINEPHrine 10 ML SYRINGE (0.1 MG/ML) MISCELLANE ONE (13:11)
[2020-08-25] MEDS ORDERED: IV FLUID CONTINUATION 1,000 ML IV ONE (13:12)
--- NOTE | 2020-08-25 13:18 | P.PCN ---
Date of Procedure: 08/25/20 Description of Procedure: BRIEF HISTORY: 69-year-old male with a prior medical history significant for back surgery who presented to the hospital for evaluation of dark-colored stools. The patient reports 2-3 days of formed dark stool. He denies any NSAID use, Pepto-Bismol use, or iron therapy at home. The patient is not on any anticoagulation. Diffusely he has undergone endoscopic evaluation with EGD and colonoscopy in 04/2019 significant for LA grade a esophagitis, mild gastritis, as well as polypectomy on colonoscopy. He denies any abdominal pain at this time. He denies any nausea, vomiting or hematemesis. He does report some shortness of breath in association with his symptoms. Last dark colored bowel movement was earlier in the day. Laboratory evaluation on presentation was significant for WBC 6.6, hemoglobin 11.6, platelet count 200,000, total bilirubin 0.6, alkaline phosphatase 72, AST 26 and ALTs 26 with stool testing positive for occult blood. Iron studies were not consistent with iron deficiency. Currently the patient is seen resting in bed where his been started on Protonix therapy. Computed tomography scan of the abdomen negative for any acute intra-abdominal pathology to explain symptoms, cysts on his kidneys were noted. PROCEDURE PERFORMED: Esophagogastroduodenoscopy with Endo Clip placement 2 and epinephrine injection. PREOPERATIVE DIAGNOSIS: Melena, anemia of acute blood loss. ESTIMATED BLOOD LOSS: Minimal. IV sedation per anesthesia. PROCEDURE: After informed consent was obtained, the patient was brought into the endoscopy unit. IV sedation was administered by Anesthesia under continuous monitoring. Initially the Olympus GIF-190 video endoscope was inserted into the mouth. Esophagus intubated without any difficulty. It was gradually advanced into the stomach and duodenum and carefully examined. The bulb and the second part of the duodenum appeared normal. The scope at this time was withdrawn to the stomach, adequately insufflated with air, and upon careful examination, mucosa of the antrum, body, cardia and the fundus were significant for 2 antral ulcers. One ulcer was linear measuring 1 cm in size with no high risk stigmata for bleeding. The second ulcer was large and cratered measuring 1.7 cm in size, there is no active bleeding, however there appeared to be a visible vessel in the ulcer which was treated with Endo Clip placement 2 and 10 mL of epinephrine injection. The scope was then withdrawn into the esophagus. The GE junction was located at 42 cm from the incisors. The esophagus appeared normal. There were no erosions or ulcerations seen and the patient tolerated the procedure well. IMPRESSION: 1. 2 nonbleeding antral ulcers, the larger measuring 1.7 cm and cratered with evidence of visible vessel which was treated with Endo Clip placement 2 and epinephrine injection. 2. No active bleeding or old blood noted on EGD. RECOMMENDATIONS: The findings of this examination were discussed with the patient . Okay for full liquid diet. Continue to monitor hemoglobin and hematocrit. Patient will need to be discharged on Protonix twice daily with repeat EGD in 6-8 weeks to check for ulcer healing and for biopsy at that time. Strict NSAID avoidance.
--- NOTE | 2020-08-25 19:28 | P.PN ---
Subjective This is a pleasant 69 years old male with no significant past medical history. He has remote past medical history of back surgery on vitamins only at home. Presents because of dark stool. Patient states that yesterday he had Dr. Ragland colored stool which is unusual for him and today it was black in color however there is no fresh blood reported. He denies specific abdominal pain but he said he felt some gaseous and his upcoming last night which felt like pressure. No nausea vomiting. He denies smoking, alcohol or illicit drug He had some dyspnea for the last 3-4 weeks and he was referred to sales and marketing engineer Dr. Caballero and is supposed to get echocardiogram done today. Also he has history of cough and yellow phlegm for the last 2 weeks. However he denies chest pain. Once he has been referred to Dr. Caballero and he started practicing walking 2 miles 3 times a day. Patient had EGD done 1 year ago showing LA grade a reflux esophagitis with mild antral gastritis and colonoscopy revealed 2 cm broad-based hepatic flexure polyp and 1 cm descending colon polyp status post polypectomy On admission Vitas looks stable. He is currently saturating 98% on room air, no respiratory distress. Labs including CBC is unremarkable, hemoglobin is normal at 13.0 K. INR is 1.0, BMP and liver enzymes were unremarkable, he has positive occult blood in his stool. CT of the abdomen and pelvis with contrast: No abnormality account for the patient's symptoms per radiologist, probable exophytic cortical cyst at the lower pole of the right kidney shows some wall calcification and measures 2 cm in greater dimension. Subcentimeter cyst noted within the left kidney. No hydronephrosis 08/24/2020 No abdominal pain or other complaint Hemoglobin is slightly low at 11.6, but also his elements of hemodilution. Iron studies are normal, B12 is 451, folate is more than 24 Continue with PPI GI team upon for EGD tomorrow Check echocardiogram 08/25/2020 Patient with no abdominal pain but tolerating diet, no more GI bleed. Hemoglobin is stable at 11.3 He underwent EGD, 2 nonbleeding antral ulcers, the larger measuring 1.7 cm and cratered with evidence of visible vessel which was treated with Endo Clip placement 2 and epinephrine injection. No active bleeding noted. But GI recommended to monitor for 24 hours still tomorrow We'll check hemoglobin is stable and GI team will find him stable then patient may be discharged in 24-48 hours Objective - Vital Signs Vital signs: Vital Signs Temp 97.8 F 08/25/20 07:44 Pulse 68 08/25/20 15:02 Resp 14 08/25/20 15:03 BP 132/69 08/25/20 15:02 Pulse Ox 90 L 08/25/20 15:02 Intake & Output 08/25/20 08/25/20 08/26/20 06:59 18:59 06:59 Other: Voiding Method Toilet # Voids 1 1 - Exam GENERAL: The patient is alert and oriented x3, not in any acute distress. Well developed, well nourished. HEENT: Pupils are round and equally reacting to light. EOMI. No scleral icterus. No conjunctival pallor. Normocephalic, atraumatic. No pharyngeal erythema. No thyromegaly. CARDIOVASCULAR: S1 and S2 present. No murmurs, rubs, or gallops. PULMONARY: Chest is clear to auscultation, no wheezing or crackles. ABDOMEN: Soft, nontender, nondistended, normoactive bowel sounds. No palpable organomegaly. MUSCULOSKELETAL: No joint swelling or deformity. EXTREMITIES: No cyanosis, clubbing, or pedal edema. NEUROLOGICAL: Gross neurological examination did not reveal any focal deficits. SKIN: No rashes. No petechiae - Labs CBC & Chem 7: 08/25/20 07:41 08/23/20 12:42 Labs: Abnormal Lab Results - Last 24 Hours (Table) 08/25/20 Range/Units 07:41 RBC 3.63 L (4.30-5.90) m/uL Hgb 11.3 L (13.0-17.5) gm/dL Hct 33.0 L (39.0-53.0) % Assessment and Plan Assessment: -2 nonbleeding gastric ulcers, with evidence of visible vessel which was treated with Endo Clip placement , gi team on the case , c/w protonix -Right kidney cyst, could be followed as an outpatient -History of exertional dyspnea,echocardiogram normal LV function DVT prophylaxis: No heparin. invew of GI bleed GI prophylaxis PPI
[2020-08-26 02:21] VITALS: RESP 16
[2020-08-26] MEDS: SODIUM CHLORIDE 0.9% 1,000 ML IV SCH (07:09)
[2020-08-26] MEDS: PANTOPRAZOLE 40 MG TABLET PO SCH (07:10)
[2020-08-26 07:41] VITALS: PULSE 67
[2020-08-26 08:19] LABS: Basophils % (A) 1 %; Eosinophils # (A) 0.4 k/uL (0-0.7); Eosinophils % (A) 5 %; HCT 33.2 % (39.0-53.0); HGB 11.5 gm/dL (13.0-17.5); Lymphocytes # (A) 2.3 k/uL (1.0-4.8); Lymphocytes % (A) 28 %; MCH 31.6 pg (25.0-35.0); MCHC 34.6 g/dL (31.0-37.0); MCV 91.4 fL (80.0-100.0); Mean Platelet Volume 7.9; Monocytes # (A) 0.3 k/uL (0-1.0); Monocytes % (A) 4 %; Neutrophils # (A) 5.1 k/uL (1.3-7.7); Neutrophils % (A) 61 %; Platelet Count 225 k/uL (150-450); RBC 3.64 m/uL (4.30-5.90); RDW 12.9 % (11.5-15.5); WBC 8.4 k/uL (3.8-10.6)
[2020-08-26 10:43] VITALS: BP 130/59; TEMP 97.8
[2020-08-26] MEDS ORDERED: PANTOPRAZOLE 40 MG TABLET PO SCH (17:30)
--- NOTE | 2020-08-27 00:38 | P.DS ---
Providers Date of admission: 08/25/20 15:06 Attending physician: Johnny Red MD Consults: 08/23/20 14:59 Consult Physician Urgent Consulting Provider: Balaji Wilkinson Consult Reason/Comments: acute melena, UGIB Do you want consulting provider notified?: Yes Primary care physician: [facility] Hospital Course: Diagnoses -Positive occult blood in stool, suspicion of GI bleed -Right kidney cyst, could be followed as an outpatient -History of exertional dyspnea, echocardiogram:EF 50-55%, moderate LVH DVT prophylaxis: No heparin. A few POSSIBLE blood in stool GI prophylaxis PPI Hospital course: This is a pleasant 69 years old male with no significant past medical history. He has remote past medical history of back surgery on vitamins only at home. Presents because of dark stool. Occult blood in stool was positive. Hemoglobin is only mildly low but stable at 11.6-11.3. GI team evaluated the patient and recommended EGD: 2 nonbleeding antral ulcers, the larger measuring 1.7 cm and cratered with evidence of visible vessel which was treated with Endo Clip placement 2 and epinephrine injection. Patient denies abdominal pain, no nausea vomiting and he tolerates diet well. Patient is back to his normal states and he thinks he can go home. Patient was cleared for discharge by gastroenterology. Patient is discharged on Protonix twice daily Also patient has history of some dyspnea on exertion although he walks about 4-6 months each day, he supposed to follow-up with Dr. Caballero and he missed his appointment to do an echocardiogram so it was requested while in-house Echocardiogram showing ejection fraction 50-55% with moderate concentric left ventricular hypertrophy with no significant cardiac valve disease Problems and management plan were discussed with the patient and he verbalized understanding and acceptance Patient was found stable and can be discharged home however he needs follow-up as an outpatient. Patient was instructed to follow up with PCP in the [facility] within one week and patient agrees. Also patient was instructed to follow up with GI team Dr. Pierre in 2 weeks and he agrees and he asks To make appointments for him upon discharge which was weighed and 09/01 Gen: patient is a AAOx3, no distress CVS: S1-S2, RRR, no murmur Lungs: B/L CTA, no wheezing Abdomen: soft, no distention, no tenderness, positive bowel sounds Extremity: no leg edema or induration Time spent more than 35 minutes Patient Condition at Discharge: Stable Plan - Discharge Summary Discharge Rx Participant: No New Discharge Prescriptions: New Pantoprazole [Protonix] 40 mg PO AC-BID #60 tablet. Continue Multivitamins, Thera [Multivitamin (formulary)] 1 tab PO DAILY Ascorbic Acid [Vitamin C] 500 mg PO DAILY Turmeric Root Extract [Turmeric] 500 mg PO DAILY Cyanocobalamin (Vitamin B-12) [Vitamin B-12] 1,000 mcg PO DAILY Discharge Medication List Ascorbic Acid [Vitamin C] 500 mg PO DAILY 08/23/20 [History] Cyanocobalamin (Vitamin B-12) [Vitamin B-12] 1,000 mcg PO DAILY 08/23/20 [History] Multivitamins, Thera [Multivitamin (formulary)] 1 tab PO DAILY 08/23/20 [History] Turmeric Root Extract [Turmeric] 500 mg PO DAILY 08/23/20 [History] Pantoprazole [Protonix] 40 mg PO AC-BID #60 tablet. 08/26/20 [Rx] Follow up Appointment(s)/Referral(s): Balaji Wilkinson MD [STAFF PHYSICIAN] - 09/01/20 2:00 pm (1-3 weeks for biopsy results) [facility] [Primary Care Provider] - 1-2 days Discharge Disposition: HOME SELF-CARE
== END 2020-08-26 12:35 | disposition home or self-care (01) | DRG 378 ==
LOC: EC 11:55 → 1SOBS 15:04 → OBSVTOIN 08-25 15:06
PROVIDERS: ADMIT Internal Medicine; ATTEND Internal Medicine
PROC: 3E0G8GC Introduction of Other Therapeutic Substance into Upper GI, Via Natural or Artificial Opening Endoscopic (ICD-10-PCS; principal; 2020-08-25 11:45)
PROC: 0W3P8ZZ Control Bleeding in Gastrointestinal Tract, Via Natural or Artificial Opening Endoscopic (ICD-10-PCS; principal; 2020-08-25 11:45)
DX: K25.4 Chronic or unspecified gastric ulcer with hemorrhage (principal); D62 Acute posthemorrhagic anemia; N28.1 Cyst of kidney, acquired; K21.00 Gastro-esophageal reflux disease with esophagitis, without bleeding; K29.70 Gastritis, unspecified, without bleeding; K63.5 Polyp of colon; Z98.890 Other specified postprocedural states; Z87.891 Personal history of nicotine dependence
CPT/HCPCS: 36415; 43243; 43255; 74177; 80053; 82272; 82607; 82728; 82746; 83540; 83550; 83605; 83735; 84484; 85025; 85027; 85610; 85730; 86850; 86900; 86901; 93005; 93306; 96374; 99285

== ENCOUNTER → 2023-10-08 | Outpatient (CLI) | payer OTHER | LOC: CPPFTMAIN 11:22 | PROVIDERS: ATTEND Family Medicine | DX: R06.00 Dyspnea, unspecified (principal); Z87.891 Personal history of nicotine dependence | CPT/HCPCS: 94060; 94726; 94729 ==

== ENCOUNTER → 2024-02-04 | Outpatient (CLI) | payer OTHER ==
--- NOTE | 2024-02-04 08:54 | CTL ---
EXAMINATION TYPE: CT Low Dose Lung DATE OF EXAM: 02/04/2024 6:56 AM CLINICAL INDICATION:Male, 73 years old with history of Z12.2 screening for malignant neoplasm; Screen ing for malignant neoplasm , history of tobacco use. COMPARISON: None. TECHNIQUE: Multiple axial non-contrast scans were obtained from approximately the lung apices through the upper abdomen. Coronal and sagittal reformatted images were obtained. Low dose technique was uti lized. CT DLP: 154.30 mGycm, Automated exposure control for dose reduction was used. CT Contrast: Contrast used: None Oral contrast used: None FINDINGS: ======== Lack of intravenous contrast and low dose technique limits the evaluation of the vascular and soft ti ssue structures. LUNGS: No evidence of pulmonary fibrosis. No evidence of focal consolidation, pneumothorax or pleural effusion. Elevated left diaphragm mild centrilobular Nodules: RUL: None. RML: None. RLL: Wedge-shaped area of suspected atelectasis or scarring in noted series 5 image 45 TAMMY: None. LLL: None. AIRWAY: Patent and unremarkable. HEART: Size within normal limits. Mild atherosclerosis of the arterial vasculature. MEDIASTINUM: No gross evidence of adenopathy. VASCULATURE: No aortic aneurysm. MUSCULOSKELETAL: No acute osseous abnormalities SOFT TISSUES/LYMPH NODES: Unremarkable. LOWER NECK: No significant findings. UPPER ABDOMEN: Scattered probable liver cysts.. IMPRESSION: 1. No clinically significant pulmonary nodules. 2. Mild emphysema. CT LUNG RAD AND CT CHEST RECOMMENDATION: Lung-Rad 2 Benign Appearance or Behavior: Continue annual sc reening with LDCT in 12 months. S Modifier (other clinically significant findings): None Recommend smoking cessation (if current smoker), or continuation of smoking cessation (if prior smoke r). Annual screening for lung cancer with low-dose computed tomography is recommended in adults ages 55 to 77 years who have a 30 pack-year smoking history and currently smoke or have quit within the pa st 15 years. Screening should be discontinued once a person has not smoked for 15 years or develops a health problem that substantially limits life expectancy or the ability or willingness to have curat aydee lung surgery. Lung rads 2021 [email or web address]
== END | disposition home or self-care (01) ==
LOC: RADCTMAIN 05:47
DX: Z12.2 Encounter for screening for malignant neoplasm of respiratory organs (principal); J43.9 Emphysema, unspecified; Z87.891 Personal history of nicotine dependence
CPT/HCPCS: 71271